=== PATIENT | male | born 1980 | race Caucasian/White ===

== ENCOUNTER → 2018-06-02 | Outpatient (CLI) | payer BC ==
[~2018-06-02] MED LIST: CEFD300C37 PO; ONDA4TAB12 PO; OXYC-306 PO; OXYC5TAB3 PO
== END | disposition home or self-care (01) ==
LOC: CFH 10:34
PROVIDERS: ATTEND Family Medicine
DX: R94.5 Abnormal results of liver function studies (principal)
CPT/HCPCS: 76705